=== PATIENT | male | born 1960 | race Hispanic/Latino ===

== ENCOUNTER 2023-02-23 04:57 | Inpatient (IN) | payer MEDICAID, OTHER ==
[~2023-02-23] VITALS: Ht 431.8 cm; Wt 75.6 kg
[2023-02-23 13:30] VITALS: BP 117/59
[2023-02-23] MEDS ORDERED: LACTULOSE 20 GM/30 ML UDCUP PO PRN (16:00)
[2023-02-23] MEDS ORDERED: LABETALOL 20MG SYG IV PRN (16:00)
[2023-02-23] MEDS ORDERED: HYDRALAZINE 20MG/ML VIAL IV PRN (16:00)
[2023-02-23] MEDS ORDERED: ALBUTEROL 0.083% 2.5 MG/3 ML INH IH PRN (16:00)
[2023-02-23] MEDS ORDERED: ONDANSETRON 4MG INJ IVP PRN (16:00)
[2023-02-23] MEDS ORDERED: ATOR10TA69 PO (16:01)
[2023-02-23] MEDS ORDERED: ASPI-1005 PO (16:02)
[2023-02-23] MEDS ORDERED: CLOP-31 PO (16:03)
[2023-02-23 16:10] VITALS: BP 122/65
[2023-02-23 18:12] LABS: HEMATOCRIT 26.8 % (42-54); MEAN CORPUSCULAR HEMOGLOBIN 29.9 pg (27.0-33.0); MEAN CORPUSCULAR HGB CONC 32.5 g/dL (32.0-36.0); MEAN CORPUSCULAR VOLUME 92.1 fL (79-99); PLATELET COUNT (AUTO) 301 K/uL (130-400); RED BLOOD CELL COUNT(AUTO) 2.91 MIL/uL (4.50-6.20); RED CELL DISTRIBUTION WIDTH 15.2 % (11.0-15.5); WHITE BLOOD COUNT (AUTO) 2.9 K/uL (4.8-10.8)
[2023-02-23 18:23] LABS: INR 0.99 (0.85-1.15); PROTHROMBIN TIME 10.8 SEC (9.6-11.6)
[2023-02-23 18:25] LABS: CREATININE 1.1 mg/dL (0.5-1.5); POTASSIUM 3.7 mmol/L (3.5-5.1)
[2023-02-23 18:36] LABS: BAND NEUTROPHILS % (MANUAL) 6 % (0-2); EOSINOPHILS % (MANUAL) 1 % (1-6); LYMPHOCYTES % (MANUAL) 39 % (22-44); MAN.DIFF COMMENT-IMPRESSION MANUAL DIFFERENTIAL; MONOCYTES % (MANUAL) 4 % (2-9); REACTIVE LYMPHOCYTES 1 % (0-0); SEGMENTED NEUTROPHILS % 49 % (40-70)
[2023-02-23 19:02] VITALS: BP 107/61
[2023-02-23] MEDS: INSULIN HUMULIN R 100 UNIT/ML 3ML SQ SCH ×2 (19:38→20:33)
[2023-02-23] MEDS: FAMOTIDINE 20MG TAB PO SCH (20:32)
[2023-02-23] MEDS: METOPROLOL TARTRATE 25 MG TAB PO SCH (20:32)
[2023-02-23 22:55] VITALS: BP 108/57
[2023-02-24 03:04] VITALS: BP 95/62
[2023-02-24 03:59] LABS: BASOPHILS % (AUTO) 0.3 % (0.0-5.0); HEMATOCRIT 26.4 % (42-54); MEAN CORPUSCULAR HEMOGLOBIN 29.7 pg (27.0-33.0); MEAN CORPUSCULAR HGB CONC 31.4 g/dL (32.0-36.0); MEAN CORPUSCULAR VOLUME 94.6 fL (79-99); MONOCYTES % (AUTO) 12.5 % (3.0-13.0); NEUTROPHILS % (AUTO) 43.9 % (40.0-77.0); PLATELET COUNT (AUTO) 309 K/uL (130-400); RED BLOOD CELL COUNT(AUTO) 2.79 MIL/uL (4.50-6.20); RED CELL DISTRIBUTION WIDTH 15.4 % (11.0-15.5); WHITE BLOOD COUNT (AUTO) 3.1 K/uL (4.8-10.8)
[2023-02-24 04:22] LABS: CREATININE 1.2 mg/dL (0.5-1.5); MAGNESIUM 2.1 mg/dL (1.80-2.40); PHOSPHORUS 4.3 mg/dL (2.5-4.9); POTASSIUM 3.9 mmol/L (3.5-5.1)
[2023-02-24] MEDS: INSULIN HUMULIN R 100 UNIT/ML 3ML SQ SCH ×4 (06:16→20:47)
[2023-02-24 07:02] VITALS: BP 110/65
[2023-02-24] MEDS ORDERED: CLOPIDOGREL 75MG TAB PO SCH (09:00)
[2023-02-24] MEDS: METOPROLOL TARTRATE 25 MG TAB PO SCH ×2 (09:06→20:46)
[2023-02-24] MEDS: FAMOTIDINE 20MG TAB PO SCH ×2 (09:06→20:46)
[2023-02-24] MEDS: ASPIRIN 81MG CHEW TAB PO SCH (09:07)
[2023-02-24] MEDS: ATORVASTATIN 40 MG TABLET PO SCH (09:07)
[2023-02-24] MEDS: ENOXAPARIN SODIUM 30 MG/0.3 ML SQ SCH (09:08)
[2023-02-24 11:14] VITALS: BP 117/62
[2023-02-24] MEDS: CEFAZOLIN SODIUM 2 GM VIAL IVPB SCH (12:30)
[2023-02-24] MEDS: ACETAMINOPHEN 325 MG TAB PO PRN (14:14)
[2023-02-24 16:04] VITALS: BP 109/57
[2023-02-24 19:47] VITALS: BP 129/65
[2023-02-24 23:11] VITALS: BP 110/69
[2023-02-25] VITALS (31 sets, daily range): BP systolic 86–164; BP diastolic -28–83
[2023-02-25 03:51] LABS: HEMATOCRIT 26.8 % (42-54); MEAN CORPUSCULAR HEMOGLOBIN 30.2 pg (27.0-33.0); MEAN CORPUSCULAR HGB CONC 32.1 g/dL (32.0-36.0); RED BLOOD CELL COUNT(AUTO) 2.85 MIL/uL (4.50-6.20); RED CELL DISTRIBUTION WIDTH 15.2 % (11.0-15.5); WHITE BLOOD COUNT (AUTO) 3.1 K/uL (4.8-10.8)
[2023-02-25 04:00] LABS: HEMOGLOBIN A1C 5.7 % (4.0-6.0); INR 0.97 (0.85-1.15); POTASSIUM 3.7 mmol/L (3.5-5.1); PROTHROMBIN TIME 10.6 SEC (9.6-11.6)
[2023-02-25 04:01] LABS: PARTIAL THROMBOPLASTIN TIME 26.8 SEC (26.3-35.5)
[2023-02-25 04:05] LABS: ALBUMIN 3.1 g/dL (3.5-5.0); TOTAL PROTEIN, SERUM 6.6 g/dL (6.0-8.3)
[2023-02-25] MEDS: INSULIN HUMULIN R 100 UNIT/ML 3ML SQ SCH ×2 (05:59→11:30)
[2023-02-25] MEDS ORDERED: AMINOCAPROIC ACID 5,000MG VIAL 15,000 MG in 0.9% NACL 500ML IV.SOLN 420 ML IV PRN (07:30)
[2023-02-25] MEDS ORDERED: EPINEPHRINE PF 1MG (1:1,000) 10 MG in 0.9% NACL 250ML 240 ML IV PRN ×2 (07:30→14:00)
[2023-02-25] MEDS ORDERED: NOREPINEPHRINE BITARTRATE 8 MG in DEXTROSE 5%-WATER 250 ML IV PRN (07:30)
[2023-02-25] MEDS: FAMOTIDINE 20MG TAB PO SCH ×2 (08:50→20:06)
[2023-02-25] MEDS: ENOXAPARIN SODIUM 30 MG/0.3 ML SQ SCH (08:50)
[2023-02-25] MEDS: ASPIRIN 81MG CHEW TAB PO SCH (08:50)
[2023-02-25] MEDS: ATORVASTATIN 40 MG TABLET PO SCH (08:50)
[2023-02-25] MEDS: METOPROLOL TARTRATE 25 MG TAB PO SCH (09:03)
[2023-02-25] MEDS: CEFAZOLIN SODIUM 2 GM VIAL IVPB SCH ×2 (12:30→13:40)
[2023-02-25] MEDS ORDERED: MIDAZOLAM HCL 1 MG/ML 2ML VIAL ONE (13:23)
[2023-02-25] MEDS ORDERED: AMINOCAPROIC ACID 5,000MG VIAL ONE (13:23)
[2023-02-25] MEDS ORDERED: EPINEPHRINE PF 1MG (1:1,000) 1 MG/ML AMP ONE (13:23)
[2023-02-25] MEDS ORDERED: NOREPINEPHRINE BITARTRATE 1 MG/1 ML ML IV ONE (13:23)
[2023-02-25] MEDS ORDERED: HEPARIN 10,000 UNIT/10ML (1,000 UNIT/ML) VIAL ONE ×2 (13:23→15:49)
[2023-02-25] MEDS ORDERED: ESMOLOL HCL 10 MG/ML 10 ML VIAL ONE ×2 (13:23→15:18)
[2023-02-25] MEDS ORDERED: PROPOFOL 10 MG/ML 20ML VIAL IV ONE (13:23)
[2023-02-25] MEDS ORDERED: ROCURONIUM 10MG/1ML SYR 10 MG/ML ML ONE (13:23)
[2023-02-25] MEDS ORDERED: LIDOCAINE PF 100MG/5ML (2%) SYRINGE 5ML ONE (13:23)
[2023-02-25] MEDS ORDERED: FENTANYL CITRATE PF 50 MCG/1 ML 20ML VIAL IJ ONE (13:23)
[2023-02-25] MEDS ORDERED: KETAMINE 50MG/ML SYRINGE 50 MG/ML DISP.SYRIN ONE ×2 (13:26→16:23)
[2023-02-25] MEDS ORDERED: PAPAVERINE HCL 30 MG/ML 2ML VIAL ONE (13:29)
[2023-02-25] MEDS ORDERED: CEFAZOLIN SODIUM 1 GM VIAL ONE ×2 (13:29→14:05)
[2023-02-25] MEDS ORDERED: NITROGLYCERIN 50MG/D5W 250ML 250 BOT IV SCH (14:00)
[2023-02-25] MEDS ORDERED: POTASSIUM PHOS 15 mMOL+NS250ML 250 ML IV PRN (14:00)
[2023-02-25] MEDS ORDERED: ACETAMINOPHEN 650 MG SUPPOSITORY RC PRN (14:00)
[2023-02-25] MEDS ORDERED: NOREPINEPHRIN 4MG/NS 250ML 250 ML IV PRN (14:00)
[2023-02-25] MEDS ORDERED: ONDANSETRON 4MG INJ IV PRN (14:00)
[2023-02-25] MEDS ORDERED: MORPHINE 2 MG SYG IV PRN (14:00)
[2023-02-25] MEDS ORDERED: ALBUMIN (HUMAN) 5% 250 ML IV PRN (14:00)
[2023-02-25] MEDS ORDERED: AMINOCAPROIC ACID 5,000MG VIAL 15,000 MG in 0.9% NACL 250ML 250 ML IV SCH (14:00)
[2023-02-25] MEDS ORDERED: MAGNESIUM HYDROXIDE 30 ML/UDCUP PO PRN (14:00)
[2023-02-25] MEDS ORDERED: GLUCAGON 1MG KIT 1 MG ML IM PRN (14:00)
[2023-02-25] MEDS ORDERED: 0.9%NACL 1000ML 1,000 ML IV SCH (14:00)
[2023-02-25] MEDS ORDERED: 0.9%NACL 10ML VIAL IVP PRN (14:00)
[2023-02-25] MEDS ORDERED: PROPOFOL 1000 MG/100 ML 100 ML IV PRN (14:00)
[2023-02-25] MEDS ORDERED: INSULIN REGULAR, HUMAN 3ML 100 UNIT in 0.9%NACL 100ML 99 ML IV SCH ×2 (14:00)
[2023-02-25] MEDS ORDERED: ACETAMINOPHEN 325 MG TAB PO PRN (14:00)
[2023-02-25] MEDS ORDERED: MORPHINE 4 MG SYG IV PRN (14:00)
[2023-02-25] MEDS ORDERED: 0.9% NACL 500ML IV.SOLN 500 ML IV SCH (14:00)
[2023-02-25] MEDS ORDERED: DEXTROSE 50%-WATER 50 ML DISP.SYRIN IV PRN (14:00)
[2023-02-25 14:19] LABS: ABG BASE EXCESS 0.8 mmol/L (-2.0-3.0); ABG HCO3 24.6 mmol/L (21.0-28.0); ABG OXYGEN SATURATION 99.2 % (95.0-99.0); ABG PCO2 36 mmHg (35-48)
[2023-02-25] MEDS ORDERED: SODIUM BICARB 8.4% 50ML SYRINGE ONE (15:42)
[2023-02-25 15:55] LABS: ABG BASE EXCESS -4.1 mmol/L (-2.0-3.0); ABG HCO3 21.2 mmol/L (21.0-28.0); ABG PCO2 39 mmHg (35-48)
[2023-02-25] MEDS ORDERED: POTASSIUM CHLORIDE 20MEQ/100ML 100 ML IV ONE (15:59)
[2023-02-25 16:43] LABS: ABG BASE EXCESS -5.8 mmol/L (-2.0-3.0); ABG HCO3 20.3 mmol/L (21.0-28.0); ABG OXYGEN SATURATION 99.4 % (95.0-99.0); ABG PCO2 43 mmHg (35-48)
[2023-02-25 16:49] LABS: HEMATOCRIT 24.8 % (42-54); MEAN CORPUSCULAR HGB CONC 32.7 g/dL (32.0-36.0); MEAN CORPUSCULAR VOLUME 91.9 fL (79-99); RED BLOOD CELL COUNT(AUTO) 2.7 MIL/uL (4.50-6.20); RED CELL DISTRIBUTION WIDTH 15.2 % (11.0-15.5); WHITE BLOOD COUNT (AUTO) 17.4 K/uL (4.8-10.8)
[2023-02-25] MEDS ORDERED: ASPIRIN 81MG CHEW TAB PO ONE (17:00)
[2023-02-25 17:11] LABS: INR 1.12 (0.85-1.15); PROTHROMBIN TIME 12.1 SEC (9.6-11.6)
[2023-02-25 17:12] LABS: PARTIAL THROMBOPLASTIN TIME 25.4 SEC (26.3-35.5)
[2023-02-25 17:16] LABS: MAGNESIUM 1.5 mg/dL (1.80-2.40); POTASSIUM 3.7 mmol/L (3.5-5.1)
[2023-02-25] MEDS: SODIUM BICARB 50MEQ 50ML VIAL IV PRN ×3 (17:16→20:00)
[2023-02-25] MEDS: POTASSIUM CHLORIDE 20MEQ/100ML 100 ML IV PRN (17:21)
[2023-02-25] MEDS: MAGNESIUM 2GM PREMIX 50ML 50 ML IV PRN (18:08)
[2023-02-25 18:40] LABS: ABG BASE EXCESS 0.1 mmol/L (-2.0-3.0); ABG HCO3 24.1 mmol/L (21.0-28.0); ABG OXYGEN SATURATION 99.3 % (95.0-99.0); ABG PCO2 37 mmHg (35-48)
[2023-02-25] MEDS: CEFAZOLIN SODIUM 1 GM VIAL IVPB SCH (18:47)
[2023-02-25 19:51] LABS: ABG BASE EXCESS -0.9 mmol/L (-2.0-3.0); ABG HCO3 23.2 mmol/L (21.0-28.0); ABG OXYGEN SATURATION 99.1 % (95.0-99.0); ABG PCO2 36 mmHg (35-48)
[2023-02-25] MEDS ORDERED: CALCIUM GLUC 1GM/10ML VIAL ONE (19:58)
[2023-02-25] MEDS: CALCIUM GLUC 1GM 1 GM in 0.9%NACL 50ML 50 ML IV PRN (20:00)
[2023-02-25] MEDS: DOCUSATE SODIUM 100 MG CAP PO SCH (20:06)
[2023-02-25] MEDS: FAMOTIDINE 20MG VIAL IV SCH (20:06)
[2023-02-25 20:53] LABS: ABG BASE EXCESS 0.7 mmol/L (-2.0-3.0); ABG HCO3 25.2 mmol/L (21.0-28.0); ABG PCO2 40 mmHg (35-48)
[2023-02-25 22:07] LABS: ABG BASE EXCESS 0.1 mmol/L (-2.0-3.0); ABG OXYGEN SATURATION 98.4 % (95.0-99.0); ABG PCO2 42 mmHg (35-48)
[2023-02-25 22:52] LABS: ABG BASE EXCESS 2.2 mmol/L (-2.0-3.0); ABG OXYGEN SATURATION 98.5 % (95.0-99.0); ABG PCO2 43 mmHg (35-48)
[2023-02-25 23:51] LABS: ABG BASE EXCESS 2.5 mmol/L (-2.0-3.0); ABG HCO3 27.3 mmol/L (21.0-28.0); ABG OXYGEN SATURATION 98.3 % (95.0-99.0); ABG PCO2 43 mmHg (35-48)
[2023-02-26] VITALS (97 sets, daily range): BP systolic 61–179; BP diastolic 28–270
[2023-02-26 01:00] LABS: ABG BASE EXCESS 3.3 mmol/L (-2.0-3.0); ABG HCO3 28.2 mmol/L (21.0-28.0); ABG OXYGEN SATURATION 98.2 % (95.0-99.0); ABG PCO2 45 mmHg (35-48)
[2023-02-26] MEDS: CEFAZOLIN SODIUM 1 GM VIAL IVPB SCH ×2 (02:09→12:05)
[2023-02-26 02:18] LABS: ABG BASE EXCESS 4.6 mmol/L (-2.0-3.0); ABG HCO3 29.5 mmol/L (21.0-28.0); ABG OXYGEN SATURATION 98.2 % (95.0-99.0); ABG PCO2 46 mmHg (35-48)
[2023-02-26] MEDS: CALCIUM GLUC 1GM 1 GM in 0.9%NACL 50ML 50 ML IV PRN (02:55)
[2023-02-26 03:11] LABS: ABG BASE EXCESS 3.7 mmol/L (-2.0-3.0); ABG HCO3 28.8 mmol/L (21.0-28.0); ABG OXYGEN SATURATION 98.2 % (95.0-99.0); ABG PCO2 46 mmHg (35-48)
[2023-02-26 04:58] LABS: ABG BASE EXCESS 3.1 mmol/L (-2.0-3.0); ABG HCO3 28.4 mmol/L (21.0-28.0); ABG OXYGEN SATURATION 97.6 % (95.0-99.0); ABG PCO2 48 mmHg (35-48)
[2023-02-26 05:21] LABS: HEMATOCRIT 23.5 % (42-54); MEAN CORPUSCULAR HEMOGLOBIN 30.4 pg (27.0-33.0); MEAN CORPUSCULAR HGB CONC 32.8 g/dL (32.0-36.0); MEAN CORPUSCULAR VOLUME 92.9 fL (79-99); RED BLOOD CELL COUNT(AUTO) 2.53 MIL/uL (4.50-6.20); WHITE BLOOD COUNT (AUTO) 8.8 K/uL (4.8-10.8)
[2023-02-26 05:39] LABS: INR 1.01 (0.85-1.15)
[2023-02-26 05:40] LABS: CREATININE 1.1 mg/dL (0.5-1.5); MAGNESIUM 1.9 mg/dL (1.80-2.40); PARTIAL THROMBOPLASTIN TIME 25.1 SEC (26.3-35.5); PHOSPHORUS 4.5 mg/dL (2.5-4.9)
[2023-02-26] MEDS: MAGNESIUM 2GM PREMIX 50ML 50 ML IV PRN ×2 (06:02→21:20)
[2023-02-26] MEDS: FAMOTIDINE 20MG VIAL IV SCH ×3 (07:28→21:19)
[2023-02-26] MEDS: CEFAZOLIN SODIUM 2 GM VIAL IVPB SCH (07:30)
[2023-02-26] MEDS: TRAMADOL HCL 50 MG TABLET PO PRN ×3 (08:08→23:21)
[2023-02-26] MEDS: FAMOTIDINE 20MG TAB PO SCH ×2 (08:09→21:19)
[2023-02-26] MEDS: DOCUSATE SODIUM 100 MG CAP PO SCH ×2 (08:09→21:19)
[2023-02-26] MEDS: FUROSEMIDE 20MG VIAL IV SCH (08:09)
[2023-02-26] MEDS: ASPIRIN 81MG CHEW TAB PO SCH (08:09)
[2023-02-26] MEDS: ATORVASTATIN 40 MG TABLET PO SCH (08:09)
[2023-02-26] MEDS ORDERED: NICARDIPINE 25MG INJ 25 MG in 0.9% NACL 250ML 240 ML IV SCH (12:30)
[2023-02-26 20:34] LABS: CREATININE 0.8 mg/dL (0.5-1.5); MAGNESIUM 1.9 mg/dL (1.80-2.40); POTASSIUM 3.3 mmol/L (3.5-5.1)
[2023-02-26] MEDS: POTASSIUM CHLORIDE 20MEQ/100ML 100 ML IV PRN ×2 (21:19→22:39)
[2023-02-27] VITALS (79 sets, daily range): BP systolic 74–195; BP diastolic 32–132
[2023-02-27 01:05] LABS: MAGNESIUM 2.7 mg/dL (1.80-2.40); POTASSIUM 3.8 mmol/L (3.5-5.1)
[2023-02-27] MEDS: POTASSIUM CHLORIDE 20MEQ/100ML 100 ML IV PRN (01:25)
[2023-02-27] MEDS: FUROSEMIDE 20MG VIAL IV SCH (01:25)
[2023-02-27 06:11] LABS: HEMATOCRIT 26.8 % (42-54); MEAN CORPUSCULAR HGB CONC 32.1 g/dL (32.0-36.0); MEAN CORPUSCULAR VOLUME 93.4 fL (79-99); RED BLOOD CELL COUNT(AUTO) 2.87 MIL/uL (4.50-6.20)
[2023-02-27 06:30] LABS: CREATININE 0.9 mg/dL (0.5-1.5); MAGNESIUM 2.3 mg/dL (1.80-2.40); POTASSIUM 3.7 mmol/L (3.5-5.1)
[2023-02-27] MEDS: ATORVASTATIN 40 MG TABLET PO SCH (08:06)
[2023-02-27] MEDS: DOCUSATE SODIUM 100 MG CAP PO SCH ×2 (08:07→20:25)
[2023-02-27] MEDS: FAMOTIDINE 20MG TAB PO SCH ×2 (08:07→20:25)
[2023-02-27] MEDS: METOPROLOL TARTRATE 25 MG TAB PO SCH ×2 (08:07→20:25)
[2023-02-27] MEDS: ASPIRIN 81MG CHEW TAB PO SCH (08:07)
[2023-02-27] MEDS ORDERED: FUROSEMIDE 20 MG TABLET PO SCH (09:00)
[2023-02-27] MEDS: ACETAMINOPHEN 325 MG TAB PO PRN ×2 (09:22→23:30)
[2023-02-27] MEDS ORDERED: POTASSIUM CHLORIDE 10% ELIXIR 20 MEQ/15 ML UDCUP PO PRN (10:00)
[2023-02-27] MEDS ORDERED: POTASSIUM CHLORIDE 20MEQ/100ML 100 ML IV PRN (10:00)
[2023-02-27] MEDS: KCL 20 MEQ ERTAB PO PRN ×4 (10:07→16:44)
[2023-02-27] MEDS ORDERED: FUROSEMIDE 100MG VIAL 100 MG in 0.9%NACL 100ML 100 ML IV SCH (12:00)
[2023-02-27] MEDS ORDERED: FUROSEMIDE 40MG VIAL IV ONE (12:00)
[2023-02-27] MEDS: CEFAZOLIN SODIUM 2 GM VIAL IVPB SCH (12:30)
[2023-02-27] MEDS: TRAMADOL HCL 50 MG TABLET PO PRN (18:10)
[2023-02-28] VITALS (47 sets, daily range): BP systolic 84–141; BP diastolic 35–75
[2023-02-28] MEDS ORDERED: FUROSEMIDE 40MG VIAL IV SCH ×2 (01:30→09:00)
[2023-02-28 01:46] LABS: MAGNESIUM 2.1 mg/dL (1.80-2.40); POTASSIUM 3.9 mmol/L (3.5-5.1)
[2023-02-28 04:43] LABS: HEMATOCRIT 25.3 % (42-54); MEAN CORPUSCULAR HEMOGLOBIN 30.3 pg (27.0-33.0); MEAN CORPUSCULAR HGB CONC 32.4 g/dL (32.0-36.0); MEAN CORPUSCULAR VOLUME 93.4 fL (79-99); RED BLOOD CELL COUNT(AUTO) 2.71 MIL/uL (4.50-6.20); RED CELL DISTRIBUTION WIDTH 15.9 % (11.0-15.5); WHITE BLOOD COUNT (AUTO) 6.8 K/uL (4.8-10.8)
[2023-02-28 04:51] LABS: CREATININE 0.9 mg/dL (0.5-1.5); POTASSIUM 3.4 mmol/L (3.5-5.1)
[2023-02-28] MEDS: POTASSIUM CHLORIDE 20MEQ/100ML 100 ML IV PRN (05:11)
[2023-02-28] MEDS: ENOXAPARIN SODIUM 30 MG/0.3 ML SQ SCH (07:40)
[2023-02-28] MEDS: ASPIRIN 81MG CHEW TAB PO SCH (07:49)
[2023-02-28] MEDS: METOPROLOL TARTRATE 25 MG TAB PO SCH ×2 (07:49→20:10)
[2023-02-28] MEDS: DOCUSATE SODIUM 100 MG CAP PO SCH ×2 (07:49→20:10)
[2023-02-28] MEDS: FAMOTIDINE 20MG TAB PO SCH ×2 (07:49→20:10)
[2023-02-28] MEDS: ATORVASTATIN 40 MG TABLET PO SCH (07:49)
[2023-02-28] MEDS: KCL 20 MEQ ERTAB PO PRN ×2 (07:51→10:35)
[2023-02-28] MEDS: FUROSEMIDE 40MG VIAL IV SCH ×2 (07:53→20:10)
[2023-02-28] MEDS: CEFAZOLIN SODIUM 2 GM VIAL IVPB SCH (11:58)
[2023-03-01 04:00] VITALS: BP 122/67
[2023-03-01 04:06] LABS: HEMATOCRIT 26.7 % (42-54); MEAN CORPUSCULAR HEMOGLOBIN 29.9 pg (27.0-33.0); MEAN CORPUSCULAR HGB CONC 32.6 g/dL (32.0-36.0); MEAN CORPUSCULAR VOLUME 91.8 fL (79-99); RED BLOOD CELL COUNT(AUTO) 2.91 MIL/uL (4.50-6.20); RED CELL DISTRIBUTION WIDTH 15.3 % (11.0-15.5); WHITE BLOOD COUNT (AUTO) 4.9 K/uL (4.8-10.8)
[2023-03-01 04:11] LABS: CREATININE 0.9 mg/dL (0.5-1.5); POTASSIUM 3.3 mmol/L (3.5-5.1)
[2023-03-01] MEDS: KCL 20 MEQ ERTAB PO PRN (05:41)
[2023-03-01] MEDS: CEFAZOLIN SODIUM 2 GM VIAL IVPB SCH (08:09)
[2023-03-01] MEDS: ASPIRIN 81MG CHEW TAB PO SCH (08:53)
[2023-03-01] MEDS: FAMOTIDINE 20MG TAB PO SCH ×2 (08:53→20:12)
[2023-03-01] MEDS: ATORVASTATIN 40 MG TABLET PO SCH (08:53)
[2023-03-01] MEDS: ENOXAPARIN SODIUM 30 MG/0.3 ML SQ SCH (08:53)
[2023-03-01] MEDS: FUROSEMIDE 20 MG TABLET PO SCH ×2 (08:53→17:04)
[2023-03-01] MEDS: METOPROLOL TARTRATE 25 MG TAB PO SCH ×2 (08:54→20:12)
[2023-03-01] MEDS: DOCUSATE SODIUM 100 MG CAP PO SCH ×2 (08:54→20:12)
[2023-03-01 08:59] VITALS: BP 129/70
[2023-03-01] MEDS: TRAMADOL HCL 50 MG TABLET PO PRN (09:04)
[2023-03-01 12:21] VITALS: BP 118/66
[2023-03-01 16:26] VITALS: BP 107/67
[2023-03-01 20:11] VITALS: BP 108/69
[2023-03-02 00:49] VITALS: BP 104/55
[2023-03-02 04:48] VITALS: BP 118/60
[2023-03-02 07:00] VITALS: BP 121/65
[2023-03-02] MEDS: CEFAZOLIN SODIUM 2 GM VIAL IVPB SCH (07:57)
[2023-03-02] MEDS: ENOXAPARIN SODIUM 30 MG/0.3 ML SQ SCH (08:07)
[2023-03-02] MEDS: FAMOTIDINE 20MG TAB PO SCH ×2 (08:08→21:12)
[2023-03-02] MEDS: ASPIRIN 81MG CHEW TAB PO SCH (08:08)
[2023-03-02] MEDS: METOPROLOL TARTRATE 25 MG TAB PO SCH ×2 (08:08→21:12)
[2023-03-02] MEDS: DOCUSATE SODIUM 100 MG CAP PO SCH ×2 (08:08→21:12)
[2023-03-02] MEDS: FUROSEMIDE 20 MG TABLET PO SCH ×2 (08:08→17:17)
[2023-03-02] MEDS: ATORVASTATIN 40 MG TABLET PO SCH (08:14)
[2023-03-02] MEDS: TRAMADOL HCL 50 MG TABLET PO PRN (08:22)
[2023-03-02 11:00] VITALS: BP 111/56
[2023-03-02 16:00] VITALS: BP 116/63
[2023-03-02 19:03] VITALS: BP 132/72
[2023-03-03 00:03] VITALS: BP 107/62
[2023-03-03 03:03] VITALS: BP 113/69
[2023-03-03 05:03] LABS: BASOPHILS % (AUTO) 0.6 % (0.0-5.0); EOSINOPHILS % (AUTO) 3.9 % (0.0-8.0); HEMATOCRIT 25.8 % (42-54); LYMPHOCYTES % (AUTO) 45.7 % (21.0-51.0); MEAN CORPUSCULAR HEMOGLOBIN 29.6 pg (27.0-33.0); MEAN CORPUSCULAR HGB CONC 32.6 g/dL (32.0-36.0); MEAN CORPUSCULAR VOLUME 90.8 fL (79-99); MONOCYTES % (AUTO) 11.1 % (3.0-13.0); NEUTROPHILS % (AUTO) 38.1 % (40.0-77.0); PLATELET COUNT (AUTO) 253 K/uL (130-400); RED BLOOD CELL COUNT(AUTO) 2.84 MIL/uL (4.50-6.20); RED CELL DISTRIBUTION WIDTH 14.6 % (11.0-15.5); WHITE BLOOD COUNT (AUTO) 3.6 K/uL (4.8-10.8)
[2023-03-03 05:31] LABS: MAGNESIUM 1.9 mg/dL (1.80-2.40); POTASSIUM 3.4 mmol/L (3.5-5.1)
[2023-03-03] MEDS: KCL 20 MEQ ERTAB PO PRN (06:33)
[2023-03-03 07:00] VITALS: BP 119/62
[2023-03-03] MEDS: DOCUSATE SODIUM 100 MG CAP PO SCH ×2 (09:11→20:14)
[2023-03-03] MEDS: ASPIRIN 81MG CHEW TAB PO SCH (09:12)
[2023-03-03] MEDS: FUROSEMIDE 20 MG TABLET PO SCH ×2 (09:12→17:06)
[2023-03-03] MEDS: ATORVASTATIN 40 MG TABLET PO SCH (09:12)
[2023-03-03] MEDS: METOPROLOL TARTRATE 25 MG TAB PO SCH ×2 (09:12→20:15)
[2023-03-03] MEDS: FAMOTIDINE 20MG TAB PO SCH ×2 (09:12→20:14)
[2023-03-03] MEDS: ENOXAPARIN SODIUM 30 MG/0.3 ML SQ SCH (09:13)
[2023-03-03] MEDS: ACETAMINOPHEN 325 MG TAB PO PRN (09:27)
[2023-03-03 11:00] VITALS: BP 130/60
[2023-03-03 16:00] VITALS: BP 101/53
[2023-03-03 19:03] VITALS: BP 121/64
[2023-03-04 00:03] VITALS: BP 115/64
[2023-03-04 03:03] VITALS: BP 117/68
[2023-03-04 04:54] LABS: BASOPHILS % (AUTO) 0.8 % (0.0-5.0); EOSINOPHILS % (AUTO) 3.9 % (0.0-8.0); HEMATOCRIT 26.4 % (42-54); MONOCYTES % (AUTO) 10.1 % (3.0-13.0); NEUTROPHILS % (AUTO) 37.9 % (40.0-77.0); PLATELET COUNT (AUTO) 241 K/uL (130-400); RED CELL DISTRIBUTION WIDTH 14.6 % (11.0-15.5); WHITE BLOOD COUNT (AUTO) 3.9 K/uL (4.8-10.8)
[2023-03-04 05:19] LABS: B-TYPE NATRIURETIC PEPTIDE 218 pg/mL (0-100)
[2023-03-04 05:25] LABS: MAGNESIUM 1.9 mg/dL (1.80-2.40); POTASSIUM 3.5 mmol/L (3.5-5.1)
[2023-03-04] MEDS: KCL 20 MEQ ERTAB PO PRN ×2 (05:53→08:22)
[2023-03-04] MEDS: MAGNESIUM 2GM PREMIX 50ML 50 ML IV PRN (05:53)
[2023-03-04 07:30] VITALS: BP 120/63
[2023-03-04] MEDS: DOCUSATE SODIUM 100 MG CAP PO SCH (08:21)
[2023-03-04] MEDS: FUROSEMIDE 20 MG TABLET PO SCH (08:21)
[2023-03-04] MEDS: FAMOTIDINE 20MG TAB PO SCH (08:21)
[2023-03-04] MEDS: ASPIRIN 81MG CHEW TAB PO SCH (08:22)
[2023-03-04] MEDS: ATORVASTATIN 40 MG TABLET PO SCH (08:22)
[2023-03-04] MEDS: METOPROLOL TARTRATE 25 MG TAB PO SCH (08:22)
[2023-03-04] MEDS: ENOXAPARIN SODIUM 30 MG/0.3 ML SQ SCH (08:23)
[2023-03-04 12:00] VITALS: BP 115/64
[2023-03-04] MEDS ORDERED: METO25 PO (13:11)
[2023-03-04] MEDS ORDERED: FURO20TA6 PO (13:11)
== END 2023-03-04 15:46 | disposition home or self-care (01) | DRG 235 ==
LOC: 2DH 12:56 → OBSVTOIN 12:56 → 2CV 02-25 14:22 → 2CH 02-26 00:29 → 2DH 03-01 01:52
PROVIDERS: ADMIT Internal Medicine; ATTEND Internal Medicine
PROC: 30233N1 Transfusion of Nonautologous Red Blood Cells into Peripheral Vein, Percutaneous Approach (ICD-10-PCS; 2023-02-25)
PROC: 02100Z9 Bypass Coronary Artery, One Artery from Left Internal Mammary, Open Approach (ICD-10-PCS; principal; 2023-02-25 13:37)
PROC: 0210093 Bypass Coronary Artery, One Artery from Coronary Artery with Autologous Venous Tissue, Open Approach (ICD-10-PCS; 2023-02-25 13:37)
PROC: 06BQ4ZZ Excision of Left Saphenous Vein, Percutaneous Endoscopic Approach (ICD-10-PCS; 2023-02-25 13:37)
PROC: 30233R1 Transfusion of Nonautologous Platelets into Peripheral Vein, Percutaneous Approach (ICD-10-PCS; 2023-02-25 13:37)
DX: I25.10 Atherosclerotic heart disease of native coronary artery without angina pectoris (principal); J96.01 Acute respiratory failure with hypoxia; U07.1 COVID-19; D62 Acute posthemorrhagic anemia; K92.0 Hematemesis; E78.00 Pure hypercholesterolemia, unspecified; E87.70 Fluid overload, unspecified; I10 Essential (primary) hypertension; Z86.73 Personal history of transient ischemic attack (TIA), and cerebral infarction without residual deficits; Z87.11 Personal history of peptic ulcer disease; Z91.148 Patient's other noncompliance with medication regimen for other reason
CPT/HCPCS: 36415; 36430; 71045; 80048; 80053; 80061; 82330; 82435; 82803; 82947; 82948; 83036; 83605; 83735; 83880; 84100; 84132; 84295; 85018; 85025; 85027; 85610; 85730; 86850; 86900; 86901; 86923; 87426; 87635; 87641; 93005; 93312; 93880; 94002; 94003; 94010; 94150; 94760; 97039; A4357; G0378; J0171; J0610; J0690; J1644; J1650; J1815; J1940; J2001; J2250; J2270; J2405; J2440; J2704; J3010; J3475; J3480; J3490; J7050; P9016; P9034